=== PATIENT | male | born 1980 ===

== ENCOUNTER 2022-11-17 14:34 | Inpatient (IN) | payer MEDICAID, OTHER ==
[2022-11-17] MEDS ORDERED: HALOPERIDOL LACTATE 5 MG/ML 1 ML VIAL IM PRN (14:50)
[2022-11-17] MEDS ORDERED: MAG HYDROX/AL HYDROX/SIMETH 30 ML CUP PO PRN (14:50)
[2022-11-17] MEDS ORDERED: LORazepam 1 MG TAB PO PRN (14:50)
[2022-11-17] MEDS ORDERED: LORazepam 2 MG/ML INJ IM PRN (14:50)
[2022-11-17] MEDS ORDERED: haloperidoL 5 MG TAB PO PRN (14:50)
[2022-11-17] MEDS ORDERED: MAGNESIUM HYDROXIDE 2,400 MG/10 ML CUP PO PRN (14:50)
[2022-11-17 20:42] LABS: Appearance,Urine Clear (Clear); Bilirubin,Urine Negative (Negative); Blood,Urine Negative (Negative); Color,Urine Light Yellow; Glucose,Urine (UA) Negative (Negative); Ketones,Urine Negative (Negative); Leukocyte Esterase,Urine Negative (Negative); Nitrite,Urine Negative (Negative); Protein,Urine Negative (Negative); Specific Gravity,Urine 1.007 (1.001-1.035); Urobilinogen,Urine <2.0 mg/dL (<2.0)
[2022-11-17] MEDS ORDERED: QUEtiapine 50 MG TAB PO SCH (21:00)
[2022-11-17] MEDS ORDERED: ATORVASTATIN 20 MG TAB PO SCH (21:00)
[2022-11-17] MEDS: FORMOTEROL FUMARATE 20 MCG/2 ML NEBU INHALATION SCH (22:18)
[2022-11-17] MEDS: ACETAMINOPHEN TAB 325 MG TAB PO PRN (23:16)
--- NOTE | 2022-11-18 01:35 | P.CONS ---
History of Present Illness - Reason for Consult Consult date: 11/18/22 - History of Present Illness The patient is a 42-year-old male with a PMH of alcohol and tobacco abuse, hyperlipidemia, and depression who was transferred to [facility] from [facility] with the patient had presented after being petitioned by the police for depression and suicidal ideation. The patient reports that he had recently relapsed with alcohol use and had started drinking a fifth of hard liquor a day which he had previously been ongoing for several years. He reports also to smoking 2 packs of cigarettes daily. He denied any illicit substance use. Denied any physical complaints at the time of interview. Reported history of mild alcohol withdrawal without DTs. Denied ICU admission or seizures. Patient denied any physical complaints at the time of interview. He denied experiencing chest discomfort, shortness of breath, fever, chills, cough, nausea, vomiting, abdominal pain, diarrhea. Review of systems: Pertinent positives and negatives as discussed in HPI, a complete review of systems was performed and all other systems are negative. Physical examination: General: non toxic, no distress, appears at stated age, normal weight Derm: no unusual rashes/lesions, no unusual ecchymoses, warm, dry Head: atraumatic, normocephalic, symmetric Eyes: EOMI, no lid lag, anicteric sclera ENT: Nose and ears atraumatic, no thrush, no pharyngeal erythema Neck: trachea midline, supple Mouth: no lip lesion, mucus membranes moist Cardiovascular: S1S2 reg, no murmur, no edema Lungs: CTA bilateral, no rhonchi, no rales , no accessory muscle use Abdominal: soft, nontender to palpation, no guarding Ext: no gross muscle atrophy, no contractures, Neuro: No gross focal neuro deficits noted Psych: Alert, oriented, appropriate affect Assessment: Alcohol, tobacco abuse Depression with suicidal ideation Imaging: None performed Data Review: Laboratory evaluation reviewed with UA unremarkable Plan: Strongly advised on importance of cessation from alcohol use Continue with thiamine and multivitamins Defer management of depression and suicidal ideation of the primary psychiatry service Thank you for allowing us to participate in the care of this patient. We will follow peripherally. Do not hesitate to contact us with questions. Someone can be reached from the [facility] hospitalist group at all hours of the day at [phone]. Past Medical History Past Medical History: COPD, Memory Impairment Additional Past Medical History / Comment(s): Pt states he was recently diagnosed with memory problems r/t ETOH use. Also has a heart loop recorder r/t significant family cardiac history. He's supposed to carry a smartphone to monitor it but he doesn't. He couldn't tell casualty underwriter if he has any significant cardiac diagnosis. History of Any Multi-Drug Resistant Organisms: None Reported Additional Past Surgical History / Comment(s): Cardiac loop recorder placed Past Anesthesia/Blood Transfusion Reactions: No Reported Reaction Past Psychological History: Depression Smoking Status: Current every day smoker Past Alcohol Use History: Daily Additional Past Alcohol Use History / Comment(s): Recently relapsed after being sober from rehab. Relapsed 3 day prior to being hospitalized. Prior to that he drank daily. See ETOH screening. Past Drug Use History: Marijuana - Past Family History Father Family Medical History: COPD Medications and Allergies Home Medications Medication Instructions Recorded Confirmed Type Atorvastatin [Lipitor] 20 mg PO HS 11/17/22 11/17/22 History Escitalopram [Lexapro] 10 mg PO DAILY 11/17/22 11/17/22 History Formoterol Fumarate [Perforomist] 20 mcg INHALATION BID 11/17/22 11/17/22 History Gabapentin 300 mg PO TID 11/17/22 11/17/22 History Metoprolol Succinate [Metoprolol 25 mg PO 11/17/22 History Succinate ER] QUEtiapine [SEROquel] 50 mg PO HS 11/17/22 11/17/22 History Allergies Allergy/AdvReac Type Severity Reaction Status Date / Time No Known Allergies Allergy Verified 11/17/22 14:44 Physical Exam Vitals: Vital Signs Temp Pulse Pulse Resp BP 11/17/22 22:19 74 11/17/22 17:57 98.3 F 91 18 132/71 Intake and Output 11/17/22 11/17/22 11/18/22 14:59 22:59 06:59 Other: Weight 72 kg 60.781 kg
[2022-11-18 06:31] VITALS: BP 119/67; PULSE 70; RESP 16; TEMP 97.5
[2022-11-18] MEDS: ACETAMINOPHEN TAB 325 MG TAB PO PRN (08:28)
[2022-11-18] MEDS ORDERED: THIAMINE 100 MG TAB PO SCH (09:00)
[2022-11-18] MEDS ORDERED: NICOTINE 14MG/24HR PATCH TRANSDERM SCH (09:00)
[2022-11-18] MEDS ORDERED: MULTIVITAMINS, THERA 1 EACH TAB PO SCH (09:00)
[2022-11-18] MEDS ORDERED: METOPROLOL SUCCINATE (ER) 25 MG TAB.ER.24H PO SCH (09:00)
[2022-11-18] MEDS ORDERED: NALTREXONE HCL 50 MG TAB PO SCH (09:00)
[2022-11-18] MEDS ORDERED: GABAPENTIN 300 MG CAP PO STA (09:47)
[2022-11-18] MEDS ORDERED: ESCITALOPRAM 20 MG TAB PO STA (09:47)
[2022-11-18 11:14] LABS: Basophils % (A) 1 %; Eosinophils # (A) 0.1 k/uL (0-0.7); Eosinophils % (A) 1 %; HCT 45.8 % (39.0-53.0); HGB 15.2 gm/dL (13.0-17.5); Lymphocytes # (A) 1.3 k/uL (1.0-4.8); Lymphocytes % (A) 20 %; MCH 33.8 pg (25.0-35.0); MCHC 33.2 g/dL (31.0-37.0); MCV 101.6 fL (80.0-100.0); Mean Platelet Volume 8.6; Monocytes # (A) 0.7 k/uL (0-1.0); Monocytes % (A) 11 %; Neutrophils # (A) 3.9 k/uL (1.3-7.7); Neutrophils % (A) 63 %; Platelet Count 182 k/uL (150-450); RDW 12.7 % (11.5-15.5); WBC 6.2 k/uL (3.8-10.6)
[2022-11-18] MEDS: FORMOTEROL FUMARATE 20 MCG/2 ML NEBU INHALATION SCH (11:23)
--- NOTE | 2022-11-18 11:31 | P.HP ---
Psychiatric H&P - . H&P Date: 11/18/22 History & Physical: Allergies Allergy/AdvReac Type Severity Reaction Status Date / Time No Known Allergies Allergy Verified 11/17/22 14:44 Vital Signs Temp 97.5 F L 11/18/22 06:31 Pulse 70 11/18/22 06:31 Resp 16 11/18/22 06:31 BP 119/67 11/18/22 06:31 Pulse Ox 97 11/18/22 06:31 FiO2 Intake & Output 11/17/22 11/18/22 11/18/22 18:59 06:59 18:59 Weight 60.781 kg Laboratory Last Values WBC 6.2 k/uL (3.8-10.6) 11/18/22 10:21 RBC 4.50 m/uL (4.30-5.90) 11/18/22 10:21 Hgb 15.2 gm/dL (13.0-17.5) 11/18/22 10:21 Hct 45.8 % (39.0-53.0) 11/18/22 10:21 MCV 101.6 fL (80.0-100.0) H 11/18/22 10:21 MCH 33.8 pg (25.0-35.0) 11/18/22 10:21 MCHC 33.2 g/dL (31.0-37.0) 11/18/22 10:21 RDW 12.7 % (11.5-15.5) 11/18/22 10:21 Plt Count 182 k/uL (150-450) 11/18/22 10:21 MPV 8.6 11/18/22 10:21 Neutrophils % 63 % 11/18/22 10:21 Lymphocytes % 20 % 11/18/22 10:21 Monocytes % 11 % 11/18/22 10:21 Eosinophils % 1 % 11/18/22 10:21 Basophils % 1 % 11/18/22 10:21 Neutrophils # 3.9 k/uL (1.3-7.7) 11/18/22 10:21 Lymphocytes # 1.3 k/uL (1.0-4.8) 11/18/22 10:21 Monocytes # 0.7 k/uL (0-1.0) 11/18/22 10:21 Eosinophils # 0.1 k/uL (0-0.7) 11/18/22 10:21 Basophils # 0.0 k/uL (0-0.2) 11/18/22 10:21 Urine Color Light Yellow 11/17/22 19:59 Urine Appearance Clear (Clear) 11/17/22 19:59 Urine pH 6.0 (5.0-8.0) 11/17/22 19:59 Ur Specific [place] 1.007 (1.001-1.035) 11/17/22 19:59 Urine Protein Negative (Negative) 11/17/22 19:59 Urine Glucose (UA) Negative (Negative) 11/17/22 19:59 Urine Ketones Negative (Negative) 11/17/22 19:59 Urine Blood Negative (Negative) 11/17/22 19:59 Urine Nitrite Negative (Negative) 11/17/22 19:59 Urine Bilirubin Negative (Negative) 11/17/22 19:59 Urine Urobilinogen <2.0 mg/dL (<2.0) 11/17/22 19:59 Ur Leukocyte Esterase Negative (Negative) 11/17/22 19:59 11/18/22 11:31 IDENTIFYING DATA: Patient is a 42-year-old male with significant history of alcohol use disorder presents to Hospital from [facility] under petition and certification for suicidal ideation in the context of heavy alcohol use. HPI: Patient presented to the hospital on 11/17/2022, transferred from [facility] for psychiatric admission. The patient initially presented to the [place] emergency department on 11/13/2022 with a blood alcohol level 359 and endorsing suicidal ideation. The patient was recently in inpatient rehab for alcohol use in August and relapsed 3 days prior to his presentation at the [facility] ED. The patient has sent text messages endorsing suicidal thoughts with a plan to overdose on alcohol to his sister. Once medically cleared, the patient was subsequently transferred to our psychiatric unit in [facility]. Upon evaluation on our psychiatric unit, the patient is vehemently denying any suicidal or homicidal ideation, intention, and/or plan. He is not endorsing any significant symptoms of depression. He reports no changes in his appetite, changes in his hygiene and grooming, changes in his sleep, or feelings of hopelessness or helplessness. He vehemently denies any prior attempts at suic eleno. The patient reports that he has been sad about the passing of his father back in 2019 however he expresses no desire to hurt himself. He reports that he relapsed into alcohol use and felt that his family was being very suffocating in regards to his alcohol use. He states that he told them in anger that he might as well should've just killed himself. He expresses remorse for his actions. The patient reports numerous reasons as to why he does not want to . He reports taoism beliefs against suicide, love and support for his family, and is future and goal oriented. In regards to other mental health symptoms, the patient is not endorsing any significant symptoms of bipolar disorder. He reports no increased goal-directed activity, grandiosity, or mood lability. He is denying any auditory or visual hallucinations. He reports no paranoia or delusions. The patient also vehemently denies any access to firearms or other weapons. In regards to substance use, the patient does report a significant history of alcohol use disorder. He reports that he began drinking heavily when he was 25. He has been to inpatient substance abuse rehabilitation 5 times. He has been attending alcohol[facility] but currently has no truck. He does have a peer reading recovery teacher. Prior to his presentation at the [facility] emergency department, the patient reports that he has been drinking approximately a fifth of liquor. The patient smokes 2 packs per day of tobacco. He reports rare marijuana use. He denies any illicit drug use. He denies any history of delirium tremens. He was informed that he has a history of seizure but does not remember expressing any. He does report a history of tremors. PAST PSYCHIATRIC HISTORY: Patient states that he has not had any previous psychiatric diagnoses aside from anxiety. His home medications include Lexapro gabapentin. Patient denies any previous psychiatric hospitalizations. Patient denies any psychiatric outpatient follow-up. Patient denies any history of suicide attempts in the past. PMH: Past Medical History: COPD, Memory Impairment Additional Past Medical History / Comment(s): Pt states he was recently diagnosed with memory problems r/t ETOH use. Also has a heart loop recorder r/t significant family cardiac history. He's supposed to carry a smartphone to monitor it but he doesn't. He couldn't tell racebook writer if he has any significant cardiac diagnosis. History of Any Multi-Drug Resistant Organisms: None Reported Additional Past Surgical History / Comment(s): Cardiac loop recorder placed Past Anesthesia/Blood Transfusion Reactions: No Reported Reaction Past Psychological History: Depression Smoking Status: Current every day smoker Past Alcohol Use History: Daily Additional Past Alcohol Use History / Comment(s): Recently relapsed after being sober from rehab. Relapsed 3 day prior to being hospitalized. Prior to that he drank daily. See ETOH screening. Past Drug Use History: Marijuana ALLERGIES: NO KNOWN DRUG ALLERGIES CHEMICAL DEPENDENCY HISTORY: as per HPI FAMILY PSYCHIATRIC/SUBSTANCE USE HISTORY: No reported family history of mental illness. SOCIAL HISTORY: Patient was born in [place] and raised in [place]. 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 He lives by himself on a property that belongs to his brother. He reports obtaining his GED. He states that he has strong support from his multiple siblings. He states that he is Spiritism. MENTAL STATUS EXAM: General Appearance: Patient appears to be stated age is alert, directable, and attempts to cooperate. Patient appears to have fair hygiene and grooming. Wearing glasses Behavior: Patient is seated without any agitated behavior. Eye contact is appr opriate. Speech: Patient's speech is fluent and nonpressured. Mood/Affect: Patient reports their mood is "I know I messed up and that is why I'm here," affect is congruent and euthymic Suicidality/Homicidality: Patient denies having any homicidal ideation intent or plan. Denies any suicidal ideations intent or plan Perceptions: Patient denies any visual hallucinations and denies any auditory suresh llucinations Though content/process: There is no evidence of any delusional thought content and thought process is linear and goal-directed. Memory and concentration: AOX3, grossly intact for the purposes of this session. Can spell "WORLD" backwards Judgment and insight: Fair STRENGTHS/WEAKNESSES: Strength is that the patient has strong family supports, has a stable job, and has stable housing. Weakness is that the patient engages in heavy alcohol use. INTELLECT: average IMPRESSIONS: Alcohol-induced mood disorder Alcohol use disorder Tobacco use disorder PLAN: -The patient has more protective factors and risk factors in regards to self- harm. He has no prior attempts at suicide, strong family supports, is future and goal oriented, has no access to firearms or weapons, and has taoism beliefs against suicide. Weakness is that the patient engages in heavy alcohol use. At this time, the patient does not meet criteria for inpatient psychiatric admission. It is recommended that he continues treatment in the outpatient setting. -Medications : We will increase the patient's Lexapro to 20 mg daily to address anxiety The patient may continue his Seroquel 50 mg at bedtime and gabapentin 300 mg 3 times a day -Patient was counselled on substance abuse and desired to cut back on use -Patient was informed of the risks, benefits and side effects of the medication and patient verbally consented to taking the medications. Patient signed med consent form and was placed in chart. -As the patient does not meet criteria for inpatient psychiatric admission, he was subsequently discharged. 11/18/22 11:31
[2022-11-18 11:32] LABS: ALT 22 U/L (4-49); AST 27 U/L (17-59); African American GFR (CKD) >90 (>60 ml/min/1.73 sqM); Albumin 4.4 g/dL (3.5-5.0); Alkaline Phosphatase 95 U/L (38-126); Anion Gap 7 mmol/L; Blood Urea Nitrogen 18 mg/dL (9-20); Carbon Dioxide 29 mmol/L (22-30); Chloride 101 mmol/L (98-107); Glucose 81 mg/dL (74-99); Non-African American GFR(CKD) >90 (>60 ml/min/1.73 sqM); Potassium 4.9 mmol/L (3.5-5.1); Sodium 137 mmol/L (137-145); Total Bilirubin 0.8 mg/dL (0.2-1.3); Total Protein 7.8 g/dL (6.3-8.2)
--- NOTE | 2022-11-18 11:34 | P.DS ---
Providers Date of admission: 11/17/22 17:03 Expected date of discharge: 11/18/22 Attending physician: Nestor Simmons MD Consults: 11/17/22 14:50 Consult Physician Routine Consulting Provider: Crystal Thomas Consult Reason/Comments: H & P w/medical management Do you want consulting provider notified?: Yes Primary care physician: Stated None - Discharge Diagnosis(es) (1) Alcohol-induced mood disorder Current Visit: Yes Status: Acute Priority: High (2) Alcohol use disorder Current Visit: Yes Status: Chronic Priority: High (3) Tobacco use disorder Current Visit: Yes Status: Chronic Priority: Low Hospital Course: Admission HPI: Patient is a 42-year-old male with significant history of alcohol use disorder presents to Hospital from [facility] under petition and certification for suicidal ideation in the context of heavy alcohol use. HPI: Patient presented to the hospital on 11/17/2022, transferred from [facility] for psychiatric admission. The patient initially presented to the [place] emergency department on 11/13/2022 with a blood alcohol level 359 and endorsing suicidal ideation. The patient was recently in inpatient rehab for alcohol use in August and relapsed 3 days prior to his presentation at the [facility] ED. The patient has sent text messages endorsing suicidal thoughts with a plan to overdose on alcohol to his sister. Once medically cleared, the patient was subsequently transferred to our psychiatric unit in [facility]. Upon evaluation on our psychiatric unit, the patient is vehemently denying any suicidal or homicidal ideation, intention, and/or plan. He is not endorsing any significant symptoms of depression. He reports no changes in his appetite, changes in his hygiene and grooming, changes in his sleep, or feelings of hopelessness or helplessness. He vehemently denies any prior attempts at suicide. The patient reports that he has been sad about the passing of his father back in 2019 however he expresses no desire to hurt himself. He reports that he relapsed into alcohol use and felt that his family was being very suffocating in regards to his alcohol use. He states that he told them in anger that he might as well should've just killed himself. He expresses remorse for his actions. The patient reports numerous reasons as to why he does not want to . He reports mormonism beliefs against suicide, love and support for his family, and is future and goal oriented. In regards to other mental health symptoms, the patient is not endorsing any significant symptoms of bipolar disorder. He reports no increased goal-directed activity, grandiosity, or mood lability. He is denying any auditory or visual hallucinations. He reports no paranoia or delusions. The patient also vehemently denies any access to firearms or other weapons. In regards to substance use, the patient does report a significant history of alcohol use disorder. He reports that he began drinking heavily when he was 25. He has been to inpatient substance abuse rehabilitation 5 times. He has been attending alcohol[facility] but currently has no truck. He does have a peer control and recovery special tactics. Prior to his presentation at the [facility] emergency department, the patient reports that he has been drinking approximately a fifth of liquor. The patient smokes 2 packs per day of tobacco. He reports rare marijuana use. He denies any illicit drug use. He denies any history of delirium tremens. He was informed that he has a history of seizure but does not remember expressing any. He does report a history of tremors. Patient states that he has not had any previous psychiatric diagnoses aside from anxiety. His home medications include Lexapro gabapentin. Patient denies any previous psychiatric hospitalizations. Patient denies any psychiatric outpatient follow-up. Patient denies any history of suicide attempts in the past. Hospital course: After the initial psychiatric evaluation as listed above, the patient did not have criteria for inpatient psychiatric admission. The patient has more protective factors and risk factors in regards to imminent risk of self-harm. It is recommended that he is treated in the outpatient setting. Mental status exam: General Appearance: Patient appears to be stated age is alert, directable, and attempts to cooperate. Patient appears to have fair hygiene and grooming. Wearing glasses Behavior: Patient is seated without any agitated behavior. Eye contact is appropriate. Speech: Patient's speech is fluent and nonpressured. Mood/Affect: Patient reports their mood is "I know I messed up and that is why I'm here," affect is congruent and euthymic Suicidality/Homicidality: Patient denies having any homicidal ideation intent or plan. Denies any suicidal ideations intent or plan Perceptions: Patient denies any visual hallucinations and denies any auditory hallucinations Though content/process: There is no evidence of any delusional thought content and thought process is linear and goal-directed. Memory and concentration: AOX3, grossly intact for the purposes of this session. Can spell "WORLD" backwards Judgment and insight: Fair Impression: Alcohol-induced mood disorder Alcohol use disorder Tobacco use disorder Plan: -The patient has more protective factors and risk factors in regards to self- harm. He has no prior attempts at suicide, strong family supports, is future and goal oriented, has no access to firearms or weapons, and has mormonism beliefs against suicide. Weakness is that the patient engages in heavy alcohol use. At this time, the patient does not meet criteria for inpatient psychiatric admission. It is recommended that he continues treatment in the outpatient setting. -We will increase the patient's Lexapro to 20 mg daily to address anxiety The patient may continue his Seroquel 50 mg at bedtime and gabapentin 300 mg 3 times a day -Patient was counseled on the need for medication compliance and appropriate follow-up at mental health and also primary care for medical issues. Patient verbalized understanding and agreed. -Patient counseled on abstaining from recreational drugs and marijuana and alcohol. Was informed/educated on the adverse effects on their physical and mental health. Patient verbally agreed and understood. -Patient was instructed to return to the hospital or seek immediate medical care if their psychiatric or medical symptoms do worsen or reoccur. -Psychoeducation and supportive therapy provided to patient. Risks and benefits of pharmacological treatment versus the risks and benefits of nontreatment weight and discussed. Informed consent discussion held. Common side effects of psychotropics discussed such as, but not limited to headache, GI disturbance, sexual dysfunction, movement disorders, sedation, and orthostatic hypotension. Life threatening and blackbox warnings of prescribed medications also discussed. Potential risks of operating a vehicle or heavy machinery discussed with patient at length. Advised on importance of compliance and a reliable and responsible manner. Patient advised to review FDA consumer labeling of all medications prior to taking. Patient verbalized understanding of potential risks, and agrees with current treatment plan. Patient advised to medically contact physician/emergency personnel if any acute changes in condition occur. Vital Signs Temp 97.5 F L 11/18/22 06:31 Pulse 70 11/18/22 06:31 Resp 16 11/18/22 06:31 BP 119/67 11/18/22 06:31 Pulse Ox 97 11/18/22 06:31 FiO2 Intake & Output 03/16/23 03/17/23 03/17/23 18:59 06:59 18:59 Weight 60.781 kg Laboratory Results WBC 6.2 k/uL (3.8-10.6) 11/18/22 10:21 RBC 4.50 m/uL (4.30-5.90) 11/18/22 10:21 Hgb 15.2 gm/dL (13.0-17.5) 11/18/22 10:21 Hct 45.8 % (39.0-53.0) 11/18/22 10:21 MCV 101.6 fL (80.0-100.0) H 11/18/22 10:21 MCH 33.8 pg (25.0-35.0) 11/18/22 10:21 MCHC 33.2 g/dL (31.0-37.0) 11/18/22 10:21 RDW 12.7 % (11.5-15.5) 11/18/22 10:21 Plt Count 182 k/uL (150-450) 11/18/22 10:21 MPV 8.6 11/18/22 10:21 Neutrophils % 63 % 11/18/22 10:21 Lymphocytes % 20 % 11/18/22 10:21 Monocytes % 11 % 11/18/22 10:21 Eosinophils % 1 % 11/18/22 10:21 Basophils % 1 % 11/18/22 10:21 Neutrophils # 3.9 k/uL (1.3-7.7) 11/18/22 10:21 Lymphocytes # 1.3 k/uL (1.0-4.8) 11/18/22 10:21 Monocytes # 0.7 k/uL (0-1.0) 11/18/22 10:21 Eosinophils # 0.1 k/uL (0-0.7) 11/18/22 10:21 Basophils # 0.0 k/uL (0-0.2) 11/18/22 10:21 Sodium 137 mmol/L (137-145) 11/18/22 10:21 Potassium 4.9 mmol/L (3.5-5.1) 11/18/22 10:21 Chloride 101 mmol/L (98-107) 11/18/22 10:21 Carbon Dioxide 29 mmol/L (22-30) 11/18/22 10:21 Anion Gap 7 mmol/L 11/18/22 10:21 BUN 18 mg/dL (9-20) 11/18/22 10:21 Creatinine 0.98 mg/dL (0.66-1.25) 11/18/22 10:21 Est GFR (CKD-EPI)AfAm >90 (>60 ml/min/1.73 sqM) 11/18/22 10:21 Est GFR (CKD-EPI)NonAf >90 (>60 ml/min/1.73 sqM) 11/18/22 10:21 Glucose 81 mg/dL (74-99) 11/18/22 10:21 Calcium 10.0 mg/dL (8.4-10.2) 11/18/22 10:21 Total Bilirubin 0.8 mg/dL (0.2-1.3) 11/18/22 10:21 AST 27 U/L (17-59) 11/18/22 10:21 ALT 22 U/L (4-49) 11/18/22 10:21 Alkaline Phosphatase 95 U/L (38-126) 11/18/22 10:21 Total Protein 7.8 g/dL (6.3-8.2) 11/18/22 10:21 Albumin 4.4 g/dL (3.5-5.0) 11/18/22 10:21 Urine Color Light Yellow 11/17/22 19:59 Urine Appearance Clear (Clear) 11/17/22 19:59 Urine pH 6.0 (5.0-8.0) 11/17/22 19:59 Ur Specific [place] 1.007 (1.001-1.035) 11/17/22 19:59 Urine Protein Negative (Negative) 11/17/22 19:59 Urine Glucose (UA) Negative (Negative) 11/17/22 19:59 Urine Ketones Negative (Negative) 11/17/22 19:59 Urine Blood Negative (Negative) 11/17/22 19:59 Urine Nitrite Negative (Negative) 11/17/22 19:59 Urine Bilirubin Negative (Negative) 11/17/22 19:59 Urine Urobilinogen <2.0 mg/dL (<2.0) 11/17/22 19:59 Ur Leukocyte Esterase Negative (Negative) 11/17/22 19:59 Allergies Allergy/AdvReac Type Severity Reaction Status Date / Time No Known Allergies Allergy Verified 11/17/22 14:44 Patient Condition at Discharge: Stable Plan - Discharge Summary Discharge Rx Participant: No New Discharge Prescriptions: New Escitalopram [Lexapro] 20 mg PO DAILY 15 Days #15 tab Multivitamins, Thera [Multivitamin (formulary)] 1 each PO DAILY 15 Days #15 tab Naltrexone HCl [Revia] 50 mg PO DAILY 15 Days #15 tab QUEtiapine [SEROquel] 50 mg PO HS 15 Days #15 tab Thiamine [Vitamin B-1] 200 mg PO DAILY 15 Days #15 tab Continue Formoterol Fumarate [Perforomist] 20 mcg INHALATION BID Atorvastatin [Lipitor] 20 mg PO HS Metoprolol Succinate [Metoprolol Succinate ER] 25 mg PO Gabapentin 300 mg PO TID Discontinued Escitalopram [Lexapro] 10 mg PO DAILY QUEtiapine [SEROquel] 50 mg PO HS Discharge Medication List Atorvastatin [Lipitor] 20 mg PO HS 11/17/22 [History] Formoterol Fumarate [Perforomist] 20 mcg INHALATION BID 11/17/22 [History] Gabapentin 300 mg PO TID 11/17/22 [History] Metoprolol Succinate [Metoprolol Succinate ER] 25 mg PO 11/17/22 [History] Escitalopram [Lexapro] 20 mg PO DAILY 15 Days #15 tab 11/18/22 [Rx] Multivitamins, Thera [Multivitamin (formulary)] 1 each PO DAILY 15 Days #15 tab 11/18/22 [Rx] Naltrexone HCl [Revia] 50 mg PO DAILY 15 Days #15 tab 11/18/22 [Rx] QUEtiapine [SEROquel] 50 mg PO HS 15 Days #15 tab 11/18/22 [Rx] Thiamine [Vitamin B-1] 200 mg PO DAILY 15 Days #15 tab 11/18/22 [Rx] Follow up Appointment(s)/Referral(s): [facility] [Other] - 11/28/22 1:00 pm (With Brittani Chand) Patient Instructions/Handouts: How to Stop Smoking (DC), Depression (DC), Abuse of Alcohol (DC) Activity/Diet/Wound Care/Special Instructions: Avoid the use of street drugs and alcohol. Take all medications as prescribed. When you are in need of refills on your medications, please contact your medical provider and/or outpatient psychiatrist to have this done. Please go to scheduled outpatient appointments for aftercare treatment. If symptoms return or become worse, call the crisis line at and/or go to the nearest emergency room for evaluation. Discharge/Stand Alone Forms: AA Meetings [facility] - [facility], AA Meetings [place] Discharge Disposition: HOME SELF-CARE
[2022-11-18] MEDS ORDERED: GABAPENTIN 300 MG CAP PO SCH (16:00)
[2022-11-18 19:47] LABS: Chol/HDL Ratio 2.55 Ratio; LDL Cholesterol,Calculated 65.3 mg/dL (0.0-131.0); VLDL Calculation 13.66 mg/dL (5.00-40.00)
[2022-11-19] MEDS ORDERED: ESCITALOPRAM 20 MG TAB PO SCH (09:00)
== END 2022-11-18 13:35 | disposition home or self-care (01) | DRG 775 ==
LOC: 3MHU 17:03
PROVIDERS: ADMIT Psychiatry & Neurology Psychiatry; ATTEND Psychiatry & Neurology Psychiatry
DX: F10.14 Alcohol abuse with alcohol-induced mood disorder (principal); E78.5 Hyperlipidemia, unspecified; J44.9 Chronic obstructive pulmonary disease, unspecified; F32.A Depression, unspecified; F41.9 Anxiety disorder, unspecified; F17.210 Nicotine dependence, cigarettes, uncomplicated; Z71.6 Tobacco abuse counseling; Z79.899 Other long term (current) drug therapy; Z71.41 Alcohol abuse counseling and surveillance of alcoholic; Z71.51 Drug abuse counseling and surveillance of drug abuser
CPT/HCPCS: 80053; 80061; 81003; 83036; 84443; 85025; 94640